=== PATIENT | male | born 1960 | race Caucasian/White ===

== ENCOUNTER 2020-10-13 11:09 | Inpatient (IN) | payer OTHER ==
[2020-10-13 13:06] VITALS: BMI 24.2
[2020-10-13] MEDS ORDERED: MENTHOL/PHENOL 1 EACH UD MM PRN (13:21)
[2020-10-13] MEDS ORDERED: METHOCARBAMOL 500 MG TABLET PO PRN (13:21)
[2020-10-13] MEDS ORDERED: ONDANSETRON *ODT* 4 MG TABLET SL PRN (13:21)
[2020-10-13] MEDS ORDERED: BISMUTH SUBSALICYLATE 262 MG/15 ML BTL PO PRN (13:21)
[2020-10-13] MEDS ORDERED: LORazepam 1 MG TABLET PO PRN (13:21)
[2020-10-13] MEDS ORDERED: MAGNESIUM CITRATE 300 ML BOTTLE PO PRN (13:21)
[2020-10-13] MEDS ORDERED: ACETAMINOPHEN 325 MG TABLET (FP) PO PRN (13:21)
[2020-10-13] MEDS ORDERED: MAG HYDROX/AL HYDROX/SIMETH 30 ML UNIT-DOSE CUP PO PRN (13:21)
[2020-10-13] MEDS ORDERED: MAGNESIUM HYDROX 2400MG/30ML ORAL SUSPENSION 30 ML CUP PO PRN (13:21)
[2020-10-13] MEDS ORDERED: NICOTINE POLACRILEX 2 MG GUM BUC PRN (13:21)
[2020-10-13] MEDS: hydrOXYzine PAMOATE 25 MG CAPSULE (FP) PO SCH ×3 (14:46→22:36)
[2020-10-13] MEDS: NICOTINE 14 MG/24 HOURS TOPICAL PATCH TD SCH (14:46)
[2020-10-13 16:28] LABS: HEMATOCRIT 40.3 % (35.4-49); HEMOGLOBIN 13.2 GM/dL (11.7-16.9); MCH 28.7 pg (25.7-33.7); MCHC 32.8 g/dl (32.0-35.9); MEAN CELL VOLUME 87.5 fl (80-96); MEAN PLT VOLUME 9.2 fl (7.5-11.1); PLATELET COUNT 256 10^3/uL (134-434); RDW 16.8 % (11.9-15.9)
[2020-10-13 16:29] LABS: ALBUMIN 3.7 g/dl (3.4-5.0); BLOOD UREA NITROGEN 25.5 mg/dL (7-18); CALCIUM 9.2 mg/dL (8.5-10.1)
[2020-10-13 16:33] LABS: BILIRUBIN,TOTAL 0.5 mg/dL (0.2-1); TOT PROT 7.2 g/dl (6.4-8.2)
[2020-10-13] MEDS: LORazepam 2 MG TABLET PO SCH ×2 (17:57→22:36)
[2020-10-13] MEDS ORDERED: MELATONIN 5 MG TABLETS PO SCH (22:00)
[2020-10-13] MEDS ORDERED: SUVOREXANT 10 MG TABLET PO PRN (22:00)
[2020-10-13] MEDS: THIAMINE HCL 100 MG TABLET (FP) PO SCH (22:36)
[2020-10-14] MEDS ORDERED: methaDONE HCL 10 MG TABLET ONE (04:06)
[2020-10-14] MEDS ORDERED: methaDONE HCL 40 MG DISPERSABLE TABLET ONE (04:06)
[2020-10-14] MEDS: methaDONE 40 MG, methaDONE 30 MG PO SCH (05:46)
[2020-10-14] MEDS: LORazepam 2 MG TABLET PO SCH ×5 (05:46→22:09)
[2020-10-14] MEDS: hydrOXYzine PAMOATE 25 MG CAPSULE (FP) PO SCH ×5 (05:47→22:09)
[2020-10-14] MEDS ORDERED: methaDONE HCL 40 MG DISPERSABLE TABLET PO SCH (06:00)
[2020-10-14] MEDS: PRENATAL VITAMINS W/ FOLIC ACID TABLET (FP) PO SCH (10:50)
[2020-10-14] MEDS: NICOTINE 14 MG/24 HOURS TOPICAL PATCH TD SCH (10:51)
[2020-10-14] MEDS: IBUPROFEN 400 MG TABLET (FP) PO PRN (18:02)
[2020-10-14] MEDS: THIAMINE HCL 100 MG TABLET (FP) PO SCH (22:09)
[2020-10-15] MEDS ORDERED: methaDONE HCL 10 MG TABLET ONE (03:59)
[2020-10-15] MEDS ORDERED: methaDONE HCL 40 MG DISPERSABLE TABLET ONE (04:00)
[2020-10-15] MEDS: methaDONE 40 MG, methaDONE 30 MG PO SCH (05:38)
[2020-10-15] MEDS: LORazepam 1 MG TABLET PO SCH ×4 (05:39→22:08)
[2020-10-15] MEDS: hydrOXYzine PAMOATE 25 MG CAPSULE (FP) PO SCH ×5 (05:39→22:08)
[2020-10-15] MEDS: ACETAMINOPHEN 325 MG TABLET (FP) PO PRN (08:10)
[2020-10-15] MEDS: PRENATAL VITAMINS W/ FOLIC ACID TABLET (FP) PO SCH (10:29)
[2020-10-15] MEDS: NICOTINE 14 MG/24 HOURS TOPICAL PATCH TD SCH (10:29)
[2020-10-15 11:09] LABS: CALCIUM 9.4 mg/dL (8.5-10.1)
[2020-10-15 11:10] LABS: ALBUMIN 3.7 g/dl (3.4-5.0); BLOOD UREA NITROGEN 23.4 mg/dL (7-18)
[2020-10-15 11:15] LABS: BILIRUBIN,TOTAL 0.7 mg/dL (0.2-1); TOT PROT 7.4 g/dl (6.4-8.2)
[2020-10-15] MEDS: THIAMINE HCL 100 MG TABLET (FP) PO SCH (22:08)
[2020-10-16] MEDS ORDERED: LORazepam 0.5 MG TABLET PO PRN
[2020-10-16] MEDS ORDERED: methaDONE HCL 10 MG TABLET ONE (03:58)
[2020-10-16] MEDS ORDERED: methaDONE HCL 40 MG DISPERSABLE TABLET ONE (03:58)
[2020-10-16] MEDS: methaDONE 40 MG, methaDONE 30 MG PO SCH (05:37)
[2020-10-16] MEDS: LORazepam 0.5 MG TABLET PO SCH ×4 (05:37→22:45)
[2020-10-16] MEDS: hydrOXYzine PAMOATE 25 MG CAPSULE (FP) PO SCH ×5 (05:37→22:41)
[2020-10-16] MEDS: ACETAMINOPHEN 325 MG TABLET (FP) PO PRN ×3 (05:38→23:29)
[2020-10-16] MEDS: PRENATAL VITAMINS W/ FOLIC ACID TABLET (FP) PO SCH (10:21)
[2020-10-16] MEDS: NICOTINE 14 MG/24 HOURS TOPICAL PATCH TD SCH (10:22)
[2020-10-16] MEDS: THIAMINE HCL 100 MG TABLET (FP) PO SCH (22:41)
[2020-10-17] MEDS ORDERED: LORazepam 0.5 MG TABLET PO ONE (05:00)
[2020-10-17] MEDS ORDERED: methaDONE HCL 10 MG TABLET ONE ×2 (05:51→06:01)
[2020-10-17] MEDS ORDERED: methaDONE HCL 40 MG DISPERSABLE TABLET ONE ×2 (05:52→06:01)
[2020-10-17] MEDS: IBUPROFEN 400 MG TABLET (FP) PO PRN (06:02)
[2020-10-17] MEDS: hydrOXYzine PAMOATE 25 MG CAPSULE (FP) PO SCH ×2 (06:02→10:22)
[2020-10-17] MEDS: methaDONE 40 MG, methaDONE 30 MG PO SCH (06:03)
[2020-10-17 08:56] VITALS: BP 118/75; PULSE 88; TEMP 98
[2020-10-17] MEDS: NICOTINE 14 MG/24 HOURS TOPICAL PATCH TD SCH (10:22)
[2020-10-17] MEDS: PRENATAL VITAMINS W/ FOLIC ACID TABLET (FP) PO SCH (10:22)
== END 2020-10-17 12:09 | disposition other institution (70) | DRG 773 ==
LOC: YASAS 11:09 → Y6N 13:08
PROVIDERS: ADMIT Allergy & Immunology; ATTEND Allergy & Immunology
PROC: HZ2ZZZZ Detoxification Services for Substance Abuse Treatment (ICD-10-PCS; principal; 2020-10-13)
DX: F10.230 Alcohol dependence with withdrawal, uncomplicated (principal); F11.20 Opioid dependence, uncomplicated; F14.20 Cocaine dependence, uncomplicated; F17.210 Nicotine dependence, cigarettes, uncomplicated; F19.282 Other psychoactive substance dependence with psychoactive substance-induced sleep disorder; F32.9 Major depressive disorder, single episode, unspecified; R79.89 Other specified abnormal findings of blood chemistry; R74.8 Abnormal levels of other serum enzymes; R74.01 Elevation of levels of liver transaminase levels; R73.9 Hyperglycemia, unspecified
CPT/HCPCS: 36415; 80053; 85027; 86780; C9803; U0003; U0005

== ENCOUNTER 2020-10-17 12:12 | Inpatient (IN) | payer OTHER ==
[2020-10-17] MEDS ORDERED: guaiFENesin 200 MG/10 ML 10 ML UNIT-DOSE CUPS PO PRN (13:45)
[2020-10-17] MEDS ORDERED: MAGNESIUM HYDROX 2400MG/30ML ORAL SUSPENSION 30 ML CUP PO PRN (13:45)
[2020-10-17] MEDS ORDERED: P-EPHED 60MG/TRIPROLIDI 2.5MG TABLET PO PRN (13:45)
[2020-10-17] MEDS ORDERED: MAG HYDROX/AL HYDROX/SIMETH 30 ML UNIT-DOSE CUP PO PRN (13:45)
[2020-10-17] MEDS ORDERED: ACETAMINOPHEN 325 MG TABLET (FP) PO PRN (13:45)
[2020-10-17] MEDS ORDERED: MAGNESIUM CITRATE 300 ML BOTTLE PO PRN (13:45)
[2020-10-17] MEDS ORDERED: MENTHOL/PHENOL 1 EACH UD MM PRN (13:45)
[2020-10-17] MEDS ORDERED: LOPERAMIDE HCL 2 MG CAPSULE PO PRN (13:45)
[2020-10-17] MEDS ORDERED: NICOTINE POLACRILEX 2 MG GUM BUC PRN (13:45)
[2020-10-17] MEDS: IBUPROFEN 400 MG TABLET (FP) PO PRN ×2 (14:17→21:49)
[2020-10-17] MEDS: hydrOXYzine PAMOATE 25 MG CAPSULE (FP) PO PRN (14:17)
[2020-10-17] MEDS: THIAMINE HCL 100 MG TABLET (FP) PO SCH (21:49)
[2020-10-17] MEDS: SUVOREXANT 10 MG TABLET PO PRN (21:49)
[2020-10-17] MEDS ORDERED: MELATONIN 5 MG TABLETS PO SCH (22:00)
[2020-10-18] MEDS ORDERED: methaDONE HCL 40 MG DISPERSABLE TABLET ONE (04:28)
[2020-10-18] MEDS ORDERED: methaDONE HCL 10 MG TABLET ONE (04:29)
[2020-10-18] MEDS ORDERED: methaDONE HCL 10 MG TABLET PO SCH (06:00)
[2020-10-18] MEDS: methaDONE 40 MG, methaDONE 30 MG PO SCH (06:13)
[2020-10-18] MEDS: IBUPROFEN 400 MG TABLET (FP) PO PRN (10:40)
[2020-10-18] MEDS: PRENATAL VITAMINS W/ FOLIC ACID TABLET (FP) PO SCH (10:40)
[2020-10-18] MEDS: NICOTINE 7 MG/24 HOURS TOPICAL PATCH TD SCH (10:40)
[2020-10-18 11:23] LABS: HIV INTERPRETATION NEGATIVE (NEGATIVE)
[2020-10-18 18:29] LABS: EPI CELLS 2 /uL (0-25.1); HYALINE CASTS 1 /uL (0-3.1); PH,URINE 6.5 (5.0-8.0); URINE APPEARANCE CLEAR; URINE BACTERIA 48 /uL (0-1359); URINE BILIRUBIN NEGATIVE (NEGATIVE); URINE COLOR YELLOW; URINE GLUCOSE (UA) NEGATIVE (NEGATIVE); URINE KETONE NEGATIVE (NEGATIVE); URINE LEUK ESTERASE NEGATIVE (NEGATIVE); URINE NITRITE NEGATIVE (NEGATIVE); URINE PROTEIN NEGATIVE (NEGATIVE); URINE RBC 20 /uL (0-23.9); URINE WBC 4 /uL (0-25.8)
[2020-10-18] MEDS: THIAMINE HCL 100 MG TABLET (FP) PO SCH (21:03)
[2020-10-18] MEDS: SUVOREXANT 10 MG TABLET PO PRN (21:04)
[2020-10-19] MEDS ORDERED: methaDONE HCL 10 MG TABLET ONE (02:59)
[2020-10-19] MEDS ORDERED: methaDONE HCL 40 MG DISPERSABLE TABLET ONE (02:59)
[2020-10-19] MEDS: IBUPROFEN 400 MG TABLET (FP) PO PRN ×2 (06:06→21:39)
[2020-10-19] MEDS: methaDONE 40 MG, methaDONE 30 MG PO SCH (06:06)
[2020-10-19] MEDS: hydrOXYzine PAMOATE 25 MG CAPSULE (FP) PO PRN ×2 (10:17→21:38)
[2020-10-19] MEDS: NICOTINE 7 MG/24 HOURS TOPICAL PATCH TD SCH (10:17)
[2020-10-19] MEDS: PRENATAL VITAMINS W/ FOLIC ACID TABLET (FP) PO SCH (10:17)
[2020-10-19] MEDS: MAG HYDROX/ALH/SMC/DPHA/LIDO 180 ML MOUTHWASH MM SCH ×3 (13:08→23:36)
[2020-10-19] MEDS: SUVOREXANT 10 MG TABLET PO PRN (21:38)
[2020-10-19] MEDS: THIAMINE HCL 100 MG TABLET (FP) PO SCH (21:39)
[2020-10-20] MEDS ORDERED: methaDONE HCL 40 MG DISPERSABLE TABLET ONE (03:17)
[2020-10-20] MEDS ORDERED: methaDONE HCL 10 MG TABLET ONE (03:17)
[2020-10-20] MEDS: methaDONE 40 MG, methaDONE 30 MG PO SCH (06:06)
[2020-10-20] MEDS: MAG HYDROX/ALH/SMC/DPHA/LIDO 180 ML MOUTHWASH MM SCH ×3 (06:06→18:29)
[2020-10-20] MEDS: NICOTINE 7 MG/24 HOURS TOPICAL PATCH TD SCH (10:18)
[2020-10-20] MEDS: PRENATAL VITAMINS W/ FOLIC ACID TABLET (FP) PO SCH (10:30)
[2020-10-20] MEDS: hydrOXYzine PAMOATE 25 MG CAPSULE (FP) PO PRN ×2 (10:31→21:06)
[2020-10-20] MEDS: IBUPROFEN 400 MG TABLET (FP) PO PRN ×2 (10:31→21:06)
[2020-10-20] MEDS: THIAMINE HCL 100 MG TABLET (FP) PO SCH (21:07)
[2020-10-20] MEDS: SUVOREXANT 10 MG TABLET PO PRN (22:26)
[2020-10-21] MEDS: MAG HYDROX/ALH/SMC/DPHA/LIDO 180 ML MOUTHWASH MM SCH ×4 (00:37→20:59)
[2020-10-21] MEDS ORDERED: methaDONE HCL 40 MG DISPERSABLE TABLET ONE (03:29)
[2020-10-21] MEDS ORDERED: methaDONE HCL 10 MG TABLET ONE (03:30)
[2020-10-21] MEDS: methaDONE 40 MG, methaDONE 30 MG PO SCH (05:55)
[2020-10-21] MEDS: PRENATAL VITAMINS W/ FOLIC ACID TABLET (FP) PO SCH (09:30)
[2020-10-21] MEDS: IBUPROFEN 400 MG TABLET (FP) PO PRN ×2 (09:30→21:32)
[2020-10-21] MEDS: hydrOXYzine PAMOATE 25 MG CAPSULE (FP) PO PRN ×2 (09:30→21:32)
[2020-10-21] MEDS: NICOTINE 7 MG/24 HOURS TOPICAL PATCH TD SCH (09:52)
[2020-10-21] MEDS: THIAMINE HCL 100 MG TABLET (FP) PO SCH (21:31)
[2020-10-21] MEDS: SUVOREXANT 10 MG TABLET PO PRN (21:31)
[2020-10-22] MEDS: MAG HYDROX/ALH/SMC/DPHA/LIDO 180 ML MOUTHWASH MM SCH ×5 (00:01→23:59)
[2020-10-22] MEDS ORDERED: methaDONE HCL 10 MG TABLET ONE (03:08)
[2020-10-22] MEDS ORDERED: methaDONE HCL 40 MG DISPERSABLE TABLET ONE (03:08)
[2020-10-22] MEDS: methaDONE 40 MG, methaDONE 30 MG PO SCH (06:05)
[2020-10-22] MEDS: hydrOXYzine PAMOATE 25 MG CAPSULE (FP) PO PRN ×2 (09:54→21:02)
[2020-10-22] MEDS: NICOTINE 7 MG/24 HOURS TOPICAL PATCH TD SCH (09:55)
[2020-10-22] MEDS: PRENATAL VITAMINS W/ FOLIC ACID TABLET (FP) PO SCH (09:55)
[2020-10-22] MEDS: THIAMINE HCL 100 MG TABLET (FP) PO SCH (21:02)
[2020-10-22] MEDS ORDERED: SUVOREXANT 10 MG TABLET PO PRN (22:00)
[2020-10-23] MEDS ORDERED: methaDONE HCL 10 MG TABLET ONE (03:13)
[2020-10-23] MEDS ORDERED: methaDONE HCL 40 MG DISPERSABLE TABLET ONE (03:13)
[2020-10-23] MEDS: methaDONE 40 MG, methaDONE 30 MG PO SCH (06:01)
[2020-10-23] MEDS: MAG HYDROX/ALH/SMC/DPHA/LIDO 180 ML MOUTHWASH MM SCH (06:01)
[2020-10-23] MEDS: hydrOXYzine PAMOATE 25 MG CAPSULE (FP) PO PRN ×2 (06:02→09:33)
[2020-10-23 08:39] VITALS: BP 146/90; PULSE 64; TEMP 97.5
[2020-10-23] MEDS: NICOTINE 7 MG/24 HOURS TOPICAL PATCH TD SCH (09:31)
[2020-10-23] MEDS: IBUPROFEN 400 MG TABLET (FP) PO PRN (09:33)
[2020-10-23] MEDS: PRENATAL VITAMINS W/ FOLIC ACID TABLET (FP) PO SCH (09:33)
== END 2020-10-23 09:45 | disposition home or self-care (01) | DRG 772 ==
LOC: YASAS 12:12 → Y3W 12:13
PROVIDERS: ADMIT Allergy & Immunology; ATTEND Allergy & Immunology
PROC: HZ42ZZZ Group Counseling for Substance Abuse Treatment, Cognitive-Behavioral (ICD-10-PCS; principal; 2020-10-17)
DX: F10.20 Alcohol dependence, uncomplicated (principal); F11.20 Opioid dependence, uncomplicated; F14.20 Cocaine dependence, uncomplicated; F17.210 Nicotine dependence, cigarettes, uncomplicated; F32.9 Major depressive disorder, single episode, unspecified; Z91.410 Personal history of adult physical and sexual abuse
CPT/HCPCS: 36415; 81003; 87389

== ENCOUNTER 2021-03-08 11:08 | Inpatient (IN) | payer OTHER ==
[2021-03-08] MEDS ORDERED: MENTHOL/PHENOL 1 EACH UD MM PRN (11:35)
[2021-03-08] MEDS ORDERED: chlordiazePOXIDE HCL 25 MG CAPSULE PO PRN (11:35)
[2021-03-08] MEDS ORDERED: MAGNESIUM CITRATE 300 ML BOTTLE PO PRN (11:35)
[2021-03-08] MEDS ORDERED: IBUPROFEN 400 MG TABLET (FP) PO PRN (11:35)
[2021-03-08] MEDS ORDERED: ONDANSETRON *ODT* 4 MG TABLET SL PRN (11:35)
[2021-03-08] MEDS ORDERED: ACETAMINOPHEN 325 MG TABLET (FP) PO PRN ×2 (11:35)
[2021-03-08] MEDS ORDERED: BISMUTH SUBSALICYLATE 524 MG/30 ML PO PRN (11:35)
[2021-03-08] MEDS ORDERED: NICOTINE 10 MG CARTRIDGE (INHALER) IH PRN (11:35)
[2021-03-08] MEDS ORDERED: MAG HYDROX/AL HYDROX/SIMETH 30 ML UNIT-DOSE CUP PO PRN (11:35)
[2021-03-08] MEDS ORDERED: MAGNESIUM HYDROX 2400MG/30ML ORAL SUSPENSION 30 ML CUP PO PRN (11:35)
[2021-03-08 12:11] VITALS: BMI 24.3
[2021-03-08] MEDS ORDERED: chlordiazePOXIDE HCL 10 MG CAPSULE PO ONE (13:00)
[2021-03-08] MEDS: PRENATAL VITAMINS W/ FOLIC ACID TABLET (FP) PO SCH (14:14)
[2021-03-08] MEDS: hydrOXYzine PAMOATE 25 MG CAPSULE (FP) PO SCH ×3 (14:14→22:33)
[2021-03-08] MEDS: chlordiazePOXIDE HCL 25 MG CAPSULE PO SCH ×2 (17:27→22:33)
[2021-03-08] MEDS ORDERED: MELATONIN 5 MG TABLETS PO SCH (22:00)
[2021-03-08] MEDS ORDERED: SUVOREXANT 10 MG TABLET PO PRN (22:00)
[2021-03-08] MEDS: THIAMINE HCL 100 MG TABLET (FP) PO SCH (22:33)
[2021-03-09] MEDS: hydrOXYzine PAMOATE 25 MG CAPSULE (FP) PO SCH ×5 (05:26→22:40)
[2021-03-09] MEDS: chlordiazePOXIDE HCL 25 MG CAPSULE PO SCH ×4 (05:26→22:08)
[2021-03-09] MEDS ORDERED: methaDONE HCL 10 MG TABLET PO SCH (08:00)
[2021-03-09] MEDS ORDERED: methaDONE HCL 40 MG DISPERSABLE TABLET ONE (08:59)
[2021-03-09] MEDS ORDERED: methaDONE HCL 10 MG TABLET ONE (08:59)
[2021-03-09] MEDS: methaDONE 40 MG, methaDONE 30 MG PO SCH (09:07)
[2021-03-09] MEDS: PRENATAL VITAMINS W/ FOLIC ACID TABLET (FP) PO SCH (10:14)
[2021-03-09] MEDS: METHOCARBAMOL 500 MG TABLET PO PRN (10:15)
[2021-03-09] MEDS ORDERED: LOPERAMIDE HCL 2 MG CAPSULE PO PRN (10:38)
[2021-03-09] MEDS: SERTRALINE HCL 25 MG TABLET (FP) PO SCH (11:39)
[2021-03-09 11:50] LABS: HEMATOCRIT 39.7 % (35.4-49); MCH 28.6 pg (25.7-33.7); MCHC 32.8 g/dl (32.0-35.9); MEAN CELL VOLUME 87.3 fl (80-96); MEAN PLT VOLUME 9.7 fl (7.5-11.1); PLATELET COUNT 209 10^3/uL (134-434); RBC 4.55 M/mm3 (4.00-5.60); WHITE BLOOD COUNT 5.8 K/mm3 (4.0-10.0)
[2021-03-09 12:02] LABS: ALBUMIN 3.2 g/dl (3.4-5.0); BLOOD UREA NITROGEN 25.4 mg/dL (7-18)
[2021-03-09 12:06] LABS: BILIRUBIN,TOTAL 0.2 mg/dL (0.2-1); TOT PROT 6.4 g/dl (6.4-8.2)
[2021-03-09] MEDS: THIAMINE HCL 100 MG TABLET (FP) PO SCH (22:08)
[2021-03-10] MEDS ORDERED: methaDONE HCL 10 MG TABLET ONE (04:55)
[2021-03-10] MEDS ORDERED: methaDONE HCL 40 MG DISPERSABLE TABLET ONE (04:56)
[2021-03-10] MEDS: methaDONE 40 MG, methaDONE 30 MG PO SCH (05:28)
[2021-03-10] MEDS: hydrOXYzine PAMOATE 25 MG CAPSULE (FP) PO SCH ×5 (05:28→22:54)
[2021-03-10] MEDS: chlordiazePOXIDE HCL 25 MG CAPSULE PO SCH ×4 (05:29→22:53)
[2021-03-10] MEDS: PRENATAL VITAMINS W/ FOLIC ACID TABLET (FP) PO SCH (10:18)
[2021-03-10] MEDS: SERTRALINE HCL 25 MG TABLET (FP) PO SCH (10:19)
[2021-03-10] MEDS: METHOCARBAMOL 500 MG TABLET PO PRN (10:19)
[2021-03-10] MEDS: LIDOCAINE 5% TOPICAL PATCH TP SCH (10:20)
[2021-03-10] MEDS: TOLNAFTATE 1% CREAM 15 GM TUBE TP SCH ×2 (10:21→23:06)
[2021-03-10] MEDS: THIAMINE HCL 100 MG TABLET (FP) PO SCH (22:53)
[2021-03-10] MEDS: LIDOCAINE PATCH REMOVAL MC SCH (23:06)
[2021-03-11] MEDS ORDERED: chlordiazePOXIDE HCL 10 MG CAPSULE PO PRN
[2021-03-11] MEDS ORDERED: methaDONE HCL 40 MG DISPERSABLE TABLET ONE (04:53)
[2021-03-11] MEDS ORDERED: methaDONE HCL 10 MG TABLET ONE (04:53)
[2021-03-11] MEDS: hydrOXYzine PAMOATE 25 MG CAPSULE (FP) PO SCH ×5 (05:28→22:22)
[2021-03-11] MEDS: chlordiazePOXIDE HCL 10 MG CAPSULE PO SCH ×4 (05:28→22:23)
[2021-03-11] MEDS: methaDONE 40 MG, methaDONE 30 MG PO SCH (05:28)
[2021-03-11] MEDS: METHOCARBAMOL 500 MG TABLET PO PRN ×2 (05:30→10:27)
[2021-03-11] MEDS: PRENATAL VITAMINS W/ FOLIC ACID TABLET (FP) PO SCH (10:25)
[2021-03-11] MEDS: LIDOCAINE 5% TOPICAL PATCH TP SCH (10:26)
[2021-03-11] MEDS: TOLNAFTATE 1% CREAM 15 GM TUBE TP SCH ×2 (10:27→22:26)
[2021-03-11] MEDS: SERTRALINE HCL 25 MG TABLET (FP) PO SCH (10:27)
[2021-03-11] MEDS: THIAMINE HCL 100 MG TABLET (FP) PO SCH (22:22)
[2021-03-11] MEDS: LIDOCAINE PATCH REMOVAL MC SCH (22:24)
[2021-03-12] MEDS ORDERED: methaDONE HCL 10 MG TABLET ONE (04:36)
[2021-03-12] MEDS ORDERED: methaDONE HCL 40 MG DISPERSABLE TABLET ONE (04:36)
[2021-03-12] MEDS: chlordiazePOXIDE HCL 10 MG CAPSULE PO SCH ×2 (05:28→18:15)
[2021-03-12] MEDS: methaDONE 40 MG, methaDONE 30 MG PO SCH (05:29)
[2021-03-12] MEDS: hydrOXYzine PAMOATE 25 MG CAPSULE (FP) PO SCH ×5 (05:29→22:53)
[2021-03-12] MEDS ORDERED: MASKS NR ONE (07:52)
[2021-03-12] MEDS: LIDOCAINE 5% TOPICAL PATCH TP SCH (10:33)
[2021-03-12] MEDS: SERTRALINE HCL 25 MG TABLET (FP) PO SCH (10:33)
[2021-03-12] MEDS: TOLNAFTATE 1% CREAM 15 GM TUBE TP SCH ×2 (10:33→22:54)
[2021-03-12] MEDS: PRENATAL VITAMINS W/ FOLIC ACID TABLET (FP) PO SCH (10:34)
[2021-03-12] MEDS: METHOCARBAMOL 500 MG TABLET PO PRN ×2 (10:34→18:19)
[2021-03-12] MEDS: THIAMINE HCL 100 MG TABLET (FP) PO SCH (22:53)
[2021-03-12] MEDS: LIDOCAINE PATCH REMOVAL MC SCH (22:53)
[2021-03-13] MEDS ORDERED: methaDONE HCL 10 MG TABLET ONE (04:46)
[2021-03-13] MEDS ORDERED: methaDONE HCL 40 MG DISPERSABLE TABLET ONE (04:47)
[2021-03-13] MEDS ORDERED: chlordiazePOXIDE HCL 10 MG CAPSULE PO ONE (05:00)
[2021-03-13] MEDS: hydrOXYzine PAMOATE 25 MG CAPSULE (FP) PO SCH (05:49)
[2021-03-13] MEDS: methaDONE 40 MG, methaDONE 30 MG PO SCH (05:50)
[2021-03-13] MEDS: METHOCARBAMOL 500 MG TABLET PO PRN (08:29)
[2021-03-13 09:35] VITALS: BP 121/61; PULSE 80; TEMP 97.3
== END 2021-03-13 10:46 | disposition home or self-care (01) | DRG 773 ==
LOC: YASAS 11:08 → UNDOADMIN 13:26 → Y6N 13:26
PROVIDERS: ADMIT Allergy & Immunology; ATTEND Allergy & Immunology
PROC: HZ2ZZZZ Detoxification Services for Substance Abuse Treatment (ICD-10-PCS; principal; 2021-03-08)
DX: F10.230 Alcohol dependence with withdrawal, uncomplicated (principal); F10.24 Alcohol dependence with alcohol-induced mood disorder; F10.282 Alcohol dependence with alcohol-induced sleep disorder; F11.20 Opioid dependence, uncomplicated; F14.20 Cocaine dependence, uncomplicated; F17.213 Nicotine dependence, cigarettes, with withdrawal; F32.A Depression, unspecified; R74.01 Elevation of levels of liver transaminase levels; R73.9 Hyperglycemia, unspecified; Z62.810 Personal history of physical and sexual abuse in childhood; Z56.0 Unemployment, unspecified; Z59.00 Homelessness unspecified
CPT/HCPCS: 36415; 80053; 82962; 83036; 85027; 86780; C9803; U0003; U0005